=== PATIENT | male | born 1945 | race Caucasian/White ===

== ENCOUNTER 2020-05-23 07:20 | Day surgery (SDC) | payer OTHER ==
[~2020-05-23 07:20] MED LIST: Lactated Ringers 1,000 ML IV SCH; Midazolam 1 MG/ML 2 ML SDV ONE; Propofol 200 MG/20 ML SDV ONE
--- NOTE | 2020-05-23 08:35 | PCM.PREANE ---
Preanesthetic Assessment - Anesthesia/Transfusion/Family Hx Anesthesia History: Prior Anesthesia Without Reaction Family History of Anesthesia Reaction: No Transfusion History: No Prior Transfusion(s) - Review of Systems General: No Symptoms Pulmonary: No Symptoms Cardiovascular: No Symptoms Gastrointestinal: No Symptoms Neurological: No Symptoms Other: Reports: None - Physical Assessment NPO Status Date: 05/22/20 Vital Signs: Last Vital Signs Temp 96.8 F L 05/23/20 07:29 Pulse 67 05/23/20 07:29 Resp 15 05/23/20 07:29 BP 138/77 05/23/20 07:29 Pulse Ox 98 05/23/20 07:29 Height: 5 ft 11 in Weight: 79.832 kg Mental Status: Alert & Oriented x3 Airway Class: Mallampati = 2 Dentition: Reports: Normal Dentition ROM/Head Extension: Full Lungs: Clear to Auscultation, Normal Respiratory Effort Cardiovascular: Regular Rate, Regular Rhythm - Allergies Allergies/Adverse Reactions: Allergies Allergy/AdvReac Type Severity Reaction Status Date / Time No Known Allergies Allergy Verified 05/18/20 13:07 - Blood Blood Available: No - Acknowledgements Anesthesia Type Planned: General Anesthesia (tiva) Pt an Appropriate Candidate for the Planned Anesthesia: Yes Alternatives and Risks of Anesthesia Discussed w Pt/Guardian: Yes Pt/Guardian Understands and Agrees with Anesthesia Plan: Yes Additional Comments: 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, hx of ablation for afib 3 mo ago, still on antiarrythmics, but no afib since ablation PreAnesthesia Questionnaire HEENT History: Reports: None Cardiovascular History: Reports: Afib, Blood Clots/VTE/DVT Other Cardiovascular History: DVT rt leg approx 4 years ago Respiratory History: Reports: None Gastrointestinal History: Reports: Colon Polyp Genitourinary History: Reports: None Musculoskeletal History: Reports: Other (See Below) Other Musculoskeletal History: hx cracked ribs Neurological History: Reports: None Psychiatric History: Reports: None Endocrine/Metabolic History: Reports: None Hematologic History: Reports: None Immunologic History: Reports: None Oncologic (Cancer) History: Reports: Basal Cell Carcinoma Dermatologic History: Reports: None - Past Surgical History Head Surgeries/Procedures: Reports: None HEENT Surgical History: Reports: Cataract Surgery Cardiovascular Surgical History: Reports: Cardiac Ablation Other Cardiovascular Surgeries/Procedures: cardiac ablation in Feb 2020 Respiratory Surgical History: Reports: None GI Surgical History: Reports: Colonoscopy Male Surgical History: Reports: None Endocrine Surgical History: Reports: None Neurological Surgical History: Reports: None Musculoskeletal Surgical History: Reports: Shoulder Surgery, Other (See Below) Other Musculoskeletal Surgeries/Procedures:: lacey shoulder replacements, achilles tendon repair-left x2 Oncologic Surgical History: Reports: None - SUBSTANCE USE Tobacco Use Status *Q: Never Tobacco User Recreational Drug Use History: No - HOME MEDS Home Medications: Home Meds Amiodarone HCl 0.5 tab PO DAILY 05/18/20 [History] Furosemide 0.5 tab PO DAILY 05/18/20 [History] Hydrocodone/Acetaminophen [Hydrocodone-Acetamin 10-325 mg] 1 tab PO BID PRN 05/18/20 [History] Rivaroxaban [Xarelto] 20 mg PO DAILY 05/18/20 [History] Sildenafil [Viagra] 1 tab PO ASDIRECTED PRN 05/18/20 [History] carvediloL [Carvedilol] 0.5 tab PO BID 05/18/20 [History] lisinopriL [Lisinopril] 0.5 tab PO DAILY 05/18/20 [History] - CURRENT (IN HOUSE) MEDS Current Meds: Current Medications Lactated Ringer's (Ringers, Lactated) 1,000 mls @ 125 mls/hr IV ASDIRECTED [place] Last Admin: 05/23/20 07:40 Dose: 125 mls/hr Documented by: Discontinued Medications Midazolam HCl (Versed 1 Mg/Ml) Confirm Administered Dose 2 mg .ROUTE .STK-MED ONE Stop: 05/23/20 06:57 Propofol (Diprivan 20 Ml) Confirm Administered Dose 200 mg .ROUTE .STK-MED ONE Stop: 05/23/20 06:57
[2020-05-23] MEDS ORDERED: Propofol 200 MG/20 ML SDV ONE (08:41)
[2020-05-23] MEDS ORDERED: Glycopyrrolate 0.2 MG/ML SDV ONE (08:47)
--- NOTE | 2020-05-23 09:11 | PCM.OPNOTE ---
- General Post-Op/Procedure Note Date of Surgery/Procedure: 05/23/20 Operative Procedure(s): colonoscopy Findings: see [id number] Pre Op Diagnosis: TV adenoma hx Post-Op Diagnosis: hemorrhoid Anesthesia Technique: Moderate Sedation Primary Surgeon: Harman Morales Complications: None Condition: Good
[2020-05-23 09:52] VITALS: BP 113/66; PULSE 51
--- NOTE | 2020-05-23 09:58 | PCM48HPAN ---
Post Anesthesia Note - EVALUATION WITHIN 48HRS OF ANESTHETIC Vital Signs in Normal Range: Yes Patient Participated in Evaluation: Yes Respiratory Function Stable: Yes Airway Patent: Yes Cardiovascular Function Stable: Yes Hydration Status Stable: Yes Pain Control Satisfactory: Yes Nausea and Vomiting Control Satisfactory: Yes Mental Status Recovered: Yes Vital Signs: Last Vital Signs Temp 97.0 F 05/23/20 09:39 Pulse 51 L 05/23/20 09:39 Resp 15 05/23/20 09:39 BP 113/66 05/23/20 09:39 Pulse Ox 100 05/23/20 09:39
--- NOTE | 2020-05-23 09:58 | PCM.POSTAN ---
POST ANESTHESIA ASSESSMENT - MENTAL STATUS Mental Status: Alert, Oriented - VITAL SIGNS Vital Signs: Last Vital Signs Temp 97.0 F 05/23/20 09:39 Pulse 51 L 05/23/20 09:39 Resp 15 05/23/20 09:39 BP 113/66 05/23/20 09:39 Pulse Ox 100 05/23/20 09:39 - RESPIRATORY Respiratory Status: Respiratory Rate WNL, Airway Patent, O2 Saturation Stable - CARDIOVASCULAR CV Status: Pulse Rate WNL - GASTROINTESTINAL GI Status: No Symptoms - POST OP HYDRATION Hydration Status: Adequate & Stable
--- NOTE | 2020-05-23 10:01 | OR ---
SURGEON: Harman Morales MD DATE OF PROCEDURE: 05/23/2020 PREOPERATIVE DIAGNOSIS: Tubulovillous polyp history. PROCEDURE PERFORMED: Colonoscopy. PRIMARY SURGEON: Harman Morales MD COMPLICATIONS: None. DESCRIPTION OF PROCEDURE: The patient was taken to the endoscopy room. A time out was called, patient identified, and procedure identified. Diprivan was then administrated. Patient went from awake to sleep, hearing doctor talking or door closing is normal. Perineum inspection and digital examination were then performed. A well- lubricated colonoscope was gently inserted through the rectum, advanced past the rectosigmoid junction, the descending colon, splenic flexure, transverse colon, hepatic flexure, ascending colon, arrived to the cecum. Cecum was identified as dictated in the finding. Then the scope was carefully withdrawn while attention was paid to the mucosal surface for any abnormality. Air will be sucked out during the scope withdrawal. At the rectum, retroflexed to examine any rectal diseases, fistula or hemorrhoids. Patient tolerated procedure well. There were no intraoperative complications, and Dr. Morales was present throughout the whole procedure. FINDINGS: 1. The patient is easily sedated with PICKING BELT OPERATOR and Diprivan. The patient is soundly snoring. 2. Bowel prep is average with moderate amount of liquid stool, no semi-formed stool, no stool ball. 3. Colon is rather straightforward. Cecum indicated by ileocecal fold, one-to- one indentation, appendiceal orifice and observed. Mucosa examined upon scope pulling out with lots of irrigation. The patient has mild diverticulosis on the left colon. No signs or symptoms of diverticulitis, just a few of them very mild. No polyp, no mass, no growth. No inflammation, no stricture, no AV malformation, no bleeding, no ulcer. The patient has mild internal hemorrhoid, moderate external hemorrhoids. The patient would benefit from repeat colonoscopy on as-needed basis as the patient is 74 years old now. The patient should resume all his medication. SARY / ALEX /[id number]
== END 2020-05-23 10:10 | disposition home or self-care (01) ==
LOC: MW.SDS 07:20
PROVIDERS: ATTEND Surgery
DX: Z12.11 Encounter for screening for malignant neoplasm of colon (principal); K57.30 Diverticulosis of large intestine without perforation or abscess without bleeding; K64.8 Other hemorrhoids; K64.4 Residual hemorrhoidal skin tags; I50.9 Heart failure, unspecified; I48.91 Unspecified atrial fibrillation; Z86.010 Personal history of colon polyps; Z79.899 Other long term (current) drug therapy; Z79.01 Long term (current) use of anticoagulants; Z98.890 Other specified postprocedural states
CPT/HCPCS: 45378; J2250; J2704; J3490; J7120; 00811